=== PATIENT | male | born 1950 | race American Indian/Alaskan Native ===

== ENCOUNTER 2021-01-02 12:48 | Inpatient (IN) | payer MEDICARE, OTHER ==
[2021-01-02] MEDS ORDERED: SODIUM CHLORIDE 0.9% 500 ML 500 ML IV ONE (15:23)
--- NOTE | 2021-01-02 15:25 | Event Note ---
Date: 01/02/21 Medical screening examination note: 70-year-old gentleman with a history of hypertension, spinal stenosis (patient reports this is confirmed by CT scan, outpatient MRI and x-rays; scheduled to see an outpatient neurologist later on this month) referred to the emergency room today by his primary care doctor because of asymptomatic hypotension. Blood pressure was reportedly in the 70s. Patient given fluid in the field, now blood pressure 118 systolic. Patient is awake, alert, oriented, sober with a GCS of 15. He reports that he has no headache, cervical neck pain, chest pain, abdominal pain, shortness of breath, urinary symptoms, hematemesis of bright red blood per rectum. He is on a number of antihypertensive medications. He is not sure if he started any new or different medications. He denies bladder and bowel retention/incontinence as well as saddle anesthesia. He feels like he is at his baseline at this time, and he reports that he would not have presented to the emergency room today if he was not instructed to present by his primary care doctor. This is most likely hypotension secondary to medication. However, check CBC, comprehensive metabolic panel, EKG, urinalysis, give 500 cc of normal saline. Have discussed this plan of care with the patient. He is agreeable to the aforementioned. Vital Signs 01/02/21 13:45 Pulse Rate 96 H Respiratory 18 Rate Blood Pressure 132/76 [lef] O2 Sat by Pulse 98 Oximetry
[2021-01-02 16:10] LABS: Hematocrit 35.1 % (35.5-45.6); Hemoglobin 11.4 gm/dl (11.8-15.2); Mean Corpuscular HGB Conc 32 % (32-34); Mean Corpuscular Volume 86 fl (84-94); Platelet Count 503 K/mm3 (140-440); Red Cell Distribution Width 15.4 % (13.2-15.2)
[2021-01-02 16:30] LABS: Alanine Aminotransferase 12 units/L (7-56); Albumin 3.4 g/dL (3.9-5); Blood Urea Nitrogen 14 mg/dL (9-20); Calcium 10.2 mg/dL (8.4-10.2); Hemolysis Index 0
[2021-01-02 16:32] LABS: BUN/Creatinine Ratio 20
[2021-01-02 17:53] LABS: Basophils # (Auto) 0.1 K/mm3 (0.0-0.1); Basophils % (Auto) 0.4 % (0.0-1.8); Eosinophils # (Auto) 0.1 K/mm3 (0.0-0.4); Eosinophils % (Auto) 0.4 % (0.0-4.3); Hematocrit 34.3 % (35.5-45.6); Lymphocytes # (Auto) 0.9 K/mm3 (1.2-5.4); Mean Corpuscular HGB Conc 32 % (32-34); Mean Corpuscular Volume 85 fl (84-94); Monocytes # (Auto) 0.6 K/mm3 (0.0-0.8); Platelet Count 542 K/mm3 (140-440); Red Blood Count 4.04 M/mm3 (3.65-5.03); Red Cell Distribution Width 14.7 % (13.2-15.2)
--- NOTE | 2021-01-02 18:00 | XRay Report ---
CHEST 1 VIEW INDICATION: weakness. COMPARISON: None. FINDINGS: Support devices: None. Heart: Normal. Lungs/Pleura: No acute pulmonary or pleural findings. IMPRESSION: 1. No acute findings. Signer Name: Saulo Gaitan MD Signed: 01/02/2021 5:56 PM Workstation Name: [id number]
[2021-01-02] MEDS ORDERED: SODIUM CHLORIDE 0.9% 1000 ML 1,000 ML IV ONE (18:24)
--- NOTE | 2021-01-02 18:51 | Emergency Department Report ---
ED General Adult HPI - General Chief complaint: Weakness Stated complaint: LOW BLOOD PRESSURE Time Seen by Provider: 01/02/21 15:54 Source: EMS Mode of arrival: Stretcher Limitations: No Limitations - History of Present Illness Initial comments: The patient presents to the emergency department with a chief complaint of low blood pressure. The patient was at his physician's office was Dr. Morgan and had a blood pressure 88/59. Patient states besides being nauseous he had no other symptoms. Patient denies having chest pain, shortness breath, headache. Patient does complain of bilateral lower extremity weakness ever since receiving a COVID-19 vaccine and has been seen by orthopedic surgery and has an appointment with neurology for further evaluation of this weakness. This has been present for a couple of months at this time. -: Sudden Severity scale (0 -10): 2 Consistency: constant Improves with: none Worsens with: none Associated Symptoms: denies other symptoms Treatments Prior to Arrival: none - Related Data Home Medications Medication Instructions Recorded Confirmed Last Taken Aspirin EC [Halfprin EC] 81 mg PO QDAY 01/02/21 01/02/21 Unknown Butalb/Acetamin/Caff 50-325-40 50 01/02/21 Unknown [Fioricet 50-325-40] Colchicine [Colcrys] 0.6 mg PO DAILY 01/02/21 01/02/21 Unknown Finasteride 5 mg PO 01/02/21 Unknown Gabapentin 300 mg PO 01/02/21 Unknown Sitagliptin Phos/Metformin HCl 1 each PO 01/02/21 Unknown [Janumet 50-500 mg Tablet] Temazepam 30 mg PO 01/02/21 Unknown carvediloL [Coreg] 6.25 mg PO BID 01/02/21 01/02/21 Unknown traMADoL [Ultram] 50 mg PO Q6HR PRN 01/02/21 01/02/21 Unknown Allergies Allergy/AdvReac Type Severity Reaction Status Date / Time No Known Allergies Allergy Unverified 01/02/21 19:05 ED Review of Systems ROS: Stated complaint: LOW BLOOD PRESSURE Other details as noted in HPI Comment: All other systems reviewed and negative Constitutional: denies: chills, fever Eyes: denies: eye pain, eye discharge, vision change ENT: denies: ear pain, throat pain Respiratory: denies: cough, shortness of breath, wheezing Cardiovascular: denies: chest pain, palpitations Endocrine: no symptoms reported Gastrointestinal: nausea. denies: abdominal pain, diarrhea Genitourinary: denies: urgency, dysuria Musculoskeletal: denies: back pain, joint swelling, arthralgia Skin: denies: rash, lesions Neurological: denies: headache, weakness, paresthesias Psychiatric: denies: anxiety, depression Hematological/Lymphatic: denies: easy bleeding, easy bruising ED Past Medical Hx - Past Medical History Previous Medical History?: Yes Hx Hypertension: Yes Additional medical history: GOUT, MIGRAINES - Medications Home Medications: Home Medications Medication Instructions Recorded Confirmed Last Taken Type Aspirin EC [Halfprin EC] 81 mg PO QDAY 01/02/21 01/02/21 Unknown History Butalb/Acetamin/Caff 50-325-40 50 01/02/21 Unknown History [Fioricet 50-325-40] Colchicine [Colcrys] 0.6 mg PO DAILY 01/02/21 01/02/21 Unknown History Finasteride 5 mg PO 01/02/21 Unknown History Gabapentin 300 mg PO 01/02/21 Unknown History Sitagliptin Phos/Metformin HCl 1 each PO 01/02/21 Unknown History [Janumet 50-500 mg Tablet] Temazepam 30 mg PO 01/02/21 Unknown History carvediloL [Coreg] 6.25 mg PO BID 01/02/21 01/02/21 Unknown History traMADoL [Ultram] 50 mg PO Q6HR PRN 01/02/21 01/02/21 Unknown History ED Physical Exam - General Limitations: No Limitations General appearance: alert, in no apparent distress - Head Head exam: Present: atraumatic, normocephalic - Eye Eye exam: Present: normal appearance, PERRL, EOMI - ENT ENT exam: Present: mucous membranes dry - Neck Neck exam: Present: normal inspection - Respiratory Respiratory exam: Present: normal lung sounds bilaterally. Absent: respiratory distress - Cardiovascular Cardiovascular Exam: Present: normal rhythm, tachycardia. Absent: systolic murmur, diastolic murmur, rubs, gallop - GI/Abdominal GI/Abdominal exam: Present: soft, normal bowel sounds. Absent: distended, tenderness - Rectal Rectal exam: Present: deferred - Extremities Exam Extremities exam: Present: normal inspection - Back Exam Back exam: Present: normal inspection - Neurological Exam Neurological exam: Present: alert, oriented X3, CN II-XII intact. Absent: motor sensory deficit - Psychiatric Psychiatric exam: Present: normal affect, normal mood - Skin Skin exam: Present: warm, dry, intact, normal color. Absent: rash ED Course Vital Signs 01/02/21 13:45 Pulse Rate 96 H Respiratory 18 Rate Blood Pressure 132/76 [lef] O2 Sat by Pulse 98 Oximetry ED Medical Decision Making - Lab Data Result diagrams: 01/02/21 17:47 01/02/21 15:31 Lab Results 01/02/21 01/02/21 01/02/21 Range/Units 15:31 15:31 15:31 WBC 14.0 H (4.5-11.0) K/mm3 RBC 4.10 (3.65-5.03) M/mm3 Hgb 11.4 L (11.8-15.2) gm/dl Hct 35.1 L (35.5-45.6) % MCV 86 (84-94) fl MCH 28 (28-32) pg MCHC 32 (32-34) % RDW 15.4 H (13.2-15.2) % Plt Count 503 H (140-440) K/mm3 Lymph % (Auto) (13.4-35.0) % [place] % (Auto) (0.0-7.3) % Eos % (Auto) (0.0-4.3) % Baso % (Auto) (0.0-1.8) % Lymph # (Auto) (1.2-5.4) K/mm3 [place] # (Auto) (0.0-0.8) K/mm3 Eos # (Auto) (0.0-0.4) K/mm3 Baso # (Auto) (0.0-0.1) K/mm3 Seg Neutrophils % (40.0-70.0) % Seg Neutrophils # (1.8-7.7) K/mm3 Sodium 137 (137-145) mmol/L Potassium 4.5 (3.6-5.0) mmol/L Chloride 98.1 (98-107) mmol/L Carbon Dioxide 28 (22-30) mmol/L Anion Gap 15 mmol/L BUN 14 (9-20) mg/dL Creatinine 0.7 L (0.8-1.3) mg/dL Estimated GFR > 60 ml/min BUN/Creatinine Ratio 20 % Glucose 151 H (75-100) mg/dL Lactic Acid (0.7-2.0) mmol/L Calcium 10.2 (8.4-10.2) mg/dL Magnesium 1.50 L (1.7-2.3) mg/dL Total Bilirubin 0.60 (0.1-1.2) mg/dL AST 10 (5-40) units/L ALT 12 (7-56) units/L Alkaline Phosphatase 73 (35-129) units/L Total Creatine Kinase 30 L (55-170) units/L Total Protein 7.0 (6.3-8.2) g/dL Albumin 3.4 L (3.9-5) g/dL Albumin/Globulin Ratio 0.9 % TSH 2.780 (0.270-4.200) mlU/mL 01/02/21 01/02/21 Range/Units 17:47 18:20 WBC 15.6 H (4.5-11.0) K/mm3 RBC 4.04 (3.65-5.03) M/mm3 Hgb 11.0 L (11.8-15.2) gm/dl Hct 34.3 L (35.5-45.6) % MCV 85 (84-94) fl MCH 27 L (28-32) pg MCHC 32 (32-34) % RDW 14.7 (13.2-15.2) % Plt Count 542 H (140-440) K/mm3 Lymph % (Auto) 6.0 L (13.4-35.0) % [place] % (Auto) 4.0 (0.0-7.3) % Eos % (Auto) 0.4 (0.0-4.3) % Baso % (Auto) 0.4 (0.0-1.8) % Lymph # (Auto) 0.9 L (1.2-5.4) K/mm3 [place] # (Auto) 0.6 (0.0-0.8) K/mm3 Eos # (Auto) 0.1 (0.0-0.4) K/mm3 Baso # (Auto) 0.1 (0.0-0.1) K/mm3 Seg Neutrophils % 89.2 H (40.0-70.0) % Seg Neutrophils # 13.9 H (1.8-7.7) K/mm3 Sodium (137-145) mmol/L Potassium (3.6-5.0) mmol/L Chloride (98-107) mmol/L Carbon Dioxide (22-30) mmol/L Anion Gap mmol/L BUN (9-20) mg/dL Creatinine (0.8-1.3) mg/dL Estimated GFR ml/min BUN/Creatinine Ratio % Glucose (75-100) mg/dL Lactic Acid 2.80 H* (0.7-2.0) mmol/L Calcium (8.4-10.2) mg/dL Magnesium (1.7-2.3) mg/dL Total Bilirubin (0.1-1.2) mg/dL AST (5-40) units/L ALT (7-56) units/L Alkaline Phosphatase (35-129) units/L Total Creatine Kinase (55-170) units/L Total Protein (6.3-8.2) g/dL Albumin (3.9-5) g/dL Albumin/Globulin Ratio % TSH (0.270-4.200) mlU/mL - Medical Decision Making 2 L IV fluids initiated IV antibiotics given Discussed results with patient Critical care attestation.: If time is entered above; I have spent that time in minutes in the direct care of this critically ill patient, excluding procedure time. ED Disposition Clinical Impression: Lactic acidosis, Leukocytosis, Hypotension Disposition: OP ADMIT IP TO THIS HOSP Is pt being admited?: Yes Does the pt Need Aspirin: No Condition: Fair Referrals: JARAD MORGAN MD [Primary Care Provider] - 3-5 Days
--- NOTE | 2021-01-02 19:42 | History and Physical Report ---
History of Present Illness Chief complaint: My blood pressure was low History of present illness: 70 YO Male with DM, Gout, HTN, Migraine AUGUSTE presents to ED for evaluation. Pt reports " My blood pressure is low and my doctor sent me in". Pt states that he was seen by his PCP, Dr. Morgan and was found to have a blood pressure of 88/59. Pt transported to [facility] via private vehicle for further care and evaluation. Pt seen and evaluated in ED and found to have symptoms consistent with UTI, SIRS, as well as Acodosis. Pt placed in observation status and admitted to medical floor and initiated on IV antibiotic therapy. Past History Past Medical History: diabetes, hypertension, other (see HPI) Past Surgical History: No surgical history, Other (reviewed) Social history: . denies: smoking, alcohol abuse, prescription drug abuse Family history: diabetes, hypertension Medications and Allergies Allergies Allergy/AdvReac Type Severity Reaction Status Date / Time No Known Allergies Allergy Unverified 01/02/21 19:05 Home Medications Medication Instructions Recorded Confirmed Last Taken Type Aspirin EC [Halfprin EC] 81 mg PO QDAY 01/02/21 01/02/21 Unknown History Butalb/Acetamin/Caff 50-325-40 50 01/02/21 Unknown History [Fioricet 50-325-40] Colchicine [Colcrys] 0.6 mg PO DAILY 01/02/21 01/02/21 Unknown History Finasteride 5 mg PO 01/02/21 Unknown History Gabapentin 300 mg PO 01/02/21 Unknown History Sitagliptin Phos/Metformin HCl 1 each PO 01/02/21 Unknown History [Janumet 50-500 mg Tablet] Temazepam 30 mg PO 01/02/21 Unknown History carvediloL [Coreg] 6.25 mg PO BID 01/02/21 01/02/21 Unknown History traMADoL [Ultram] 50 mg PO Q6HR PRN 01/02/21 01/02/21 Unknown History Active Meds: Active Medications Sodium Chloride (Nacl 0.9% 500 Ml) 500 mls @ 999 mls/hr IV ONCE ONE Stop: 01/02/21 15:53 Last Admin: 01/02/21 19:03 Dose: 999 mls/hr Documented by: Sodium Chloride (Nacl 0.9% 1000 Ml) 1,000 mls @ 999 mls/hr IV BOLUS ONE Stop: 01/02/21 19:24 Last Admin: 01/02/21 19:04 Dose: 999 mls/hr Documented by: Cefepime HCl (Cefepime/Ns 2 Gm/100 Ml) 2 gm in 100 mls @ 200 mls/hr IV ONCE ONE; Protocol Stop: 01/02/21 19:26 Review of Systems Constitutional: no weight loss, no weight gain, no fever, no sweats Ears, nose, mouth and throat: no ear pain, no ear discharge Cardiovascular: no chest pain, no palpitations, no edema Respiratory: no cough, no cough with sputum, no excessive sputum Gastrointestinal: no abdominal pain, no diarrhea, no constipation, no change in bowel habits Genitourinary Male: dysuria, no hematuria, no flank pain Rectal: no pain, no incontinence, no bleeding Musculoskeletal: no neck stiffness, no neck pain, no arm numbness/tingling, no low back pain Integumentary: no rash, no pruritis, no redness, no sores, no wounds, no jaundice Neurological: no head injury, no paralysis, no parathesias, no numbness, no seizures, no tremors Psychiatric: no anxiety, no memory loss, no change in sleep habits, no sleep d isturbances, no insomnia, no change in appetite, no change in libido Endocrine: no cold intolerance, no heat intolerance, no polyphagia, no excessive thirst, no polyuria, no excessive sweating Hematologic/Lymphatic: no easy bruising, no easy bleeding, no lymphadenopathy, no lymphedema Allergic/Immunologic: no urticaria, no wheezing, no persistent infections, no anaphylaxis Exam - Constitutional Vitals: Temp Pulse Resp BP Pulse Ox 96 H 18 132/76 98 01/02/21 13:45 01/02/21 13:45 01/02/21 13:45 01/02/21 13:45 General appearance: Present: mild distress - EENT Eyes: Present: PERRL ENT: hearing intact, clear oral mucosa - Neck Neck: Present: supple, normal ROM - Respiratory Respiratory effort: normal Respiratory: bilateral: CTA - Cardiovascular Heart Sounds: Present: S1 & S2. Absent: rub, click - Extremities Extremities: pulses symmetrical, No edema Peripheral Pulses: within normal limits - Abdominal General gastrointestinal: Present: soft, non-tender, non-distended, normal bowel sounds Male genitourinary: Present: normal - Integumentary Integumentary: Present: clear, warm, dry - Musculoskeletal Musculoskeletal: gait normal, strength equal bilaterally - Psychiatric Psychiatric: appropriate mood/affect, intact judgment & insight - Neurologic Neurologic: CNII-XII intact, moves all extremities Results - Labs CBC & Chem 7: 01/02/21 17:47 01/02/21 15:31 Labs: Abnormal lab results 01/02/21 01/02/21 01/02/21 Range/Units 15:31 15:31 17:47 WBC 14.0 H 15.6 H (4.5-11.0) K/mm3 Hgb 11.4 L 11.0 L (11.8-15.2) gm/dl Hct 35.1 L 34.3 L (35.5-45.6) % MCH 27 L (28-32) pg RDW 15.4 H (13.2-15.2) % Plt Count 503 H 542 H (140-440) K/mm3 Lymph % (Auto) 6.0 L (13.4-35.0) % Lymph # (Auto) 0.9 L (1.2-5.4) K/mm3 Seg Neutrophils % 89.2 H (40.0-70.0) % Seg Neutrophils # 13.9 H (1.8-7.7) K/mm3 Creatinine 0.7 L (0.8-1.3) mg/dL Glucose 151 H (75-100) mg/dL Lactic Acid (0.7-2.0) mmol/L Magnesium 1.50 L (1.7-2.3) mg/dL Total Creatine Kinase 30 L (55-170) units/L Albumin 3.4 L (3.9-5) g/dL 01/02/21 01/02/21 Range/Units 18:20 19:07 WBC (4.5-11.0) K/mm3 Hgb (11.8-15.2) gm/dl Hct (35.5-45.6) % MCH (28-32) pg RDW (13.2-15.2) % Plt Count (140-440) K/mm3 Lymph % (Auto) (13.4-35.0) % Lymph # (Auto) (1.2-5.4) K/mm3 Seg Neutrophils % (40.0-70.0) % Seg Neutrophils # (1.8-7.7) K/mm3 Creatinine (0.8-1.3) mg/dL Glucose (75-100) mg/dL Lactic Acid 2.80 H* 2.30 H* (0.7-2.0) mmol/L Magnesium (1.7-2.3) mg/dL Total Creatine Kinase (55-170) units/L Albumin (3.9-5) g/dL Assessment and Plan - Patient Problems (1) UTI (urinary tract infection) Current Visit: Yes Status: Acute Qualifiers: Encounter type: initial encounter Plan to address problem: IV antibiotic therapy, urinalysis, supportive care. (2) Hypotension Current Visit: Yes Status: Acute Qualifiers: Hypotension type: idiopathic hypotension Qualified Code(s): I95.0 - Idiopathic hypotension Plan to address problem: Monitor BP q shift, hold antihypertensive therapy for now. (3) Diabetes Current Visit: Yes Status: Acute Plan to address problem: Consistent carbohydrate diet, accu check, hypoglycemia protocol (4) DVT prophylaxis Current Visit: Yes Status: Acute Plan to address problem: SCD to BLE while in bed.
[2021-01-02] MEDS ORDERED: ACETAMINOPHEN 325 MG TAB PO PRN (19:44)
[2021-01-02] MEDS ORDERED: ONDANSETRON 4 MG/2 ML INJ IV PRN (19:44)
[2021-01-02] MEDS ORDERED: ALBUTEROL 2.5 MG/3 ML NEBU IH PRN (19:44)
[2021-01-02] MEDS ORDERED: oxyCODONE /ACETAMINOPHEN 5-325MG TAB PO PRN (19:44)
[2021-01-02] MEDS ORDERED: SODIUM CHLORIDE 0.9% 1000 ML 1,000 ML IV SCH (19:45)
[2021-01-02] MEDS ORDERED: traMADol 50 MG TAB PO PRN (19:46)
[2021-01-02] MEDS ORDERED: TEMAZEPAM 30 MG PO SCH (21:00)
[2021-01-02] MEDS ORDERED: CEFEPIME/NS 2 GM/100 ML 2 GM/100 ML BAG IV ONE (21:00)
[2021-01-02 21:08] LABS: Bacteria,Urine 2+ /HPF (Negative); Bilirubin,Urine NEG (Negative); Blood,Urine NEG (Negative); Color,Urine Amber (Yellow); Hyaline Casts,Urine 2 /LPF; Mucus,Urine 3+ /HPF
[2021-01-02] MEDS ORDERED: MORPHINE 2 MG/1 ML INJ IV PRN (21:21)
[2021-01-03] MEDS: TEMAZEPAM 15 MG CAP PO SCH ×2 (01:21→22:04)
[2021-01-03] MEDS: carvediloL 6.25 MG TAB PO SCH ×3 (01:22→22:07)
[2021-01-03 06:18] LABS: BUN/Creatinine Ratio 20; Blood Urea Nitrogen 10 mg/dL (9-20); Hemolysis Index 6
[2021-01-03 06:24] LABS: Basophils % (Auto) 0.2 % (0.0-1.8); Eosinophils % (Auto) 0.2 % (0.0-4.3); Hematocrit 31.3 % (35.5-45.6); Hemoglobin 10.2 gm/dl (11.8-15.2); Lymphocytes # (Auto) 0.9 K/mm3 (1.2-5.4); Lymphocytes % (Auto) 7.7 % (13.4-35.0); Mean Corpuscular HGB Conc 33 % (32-34); Mean Corpuscular Volume 84 fl (84-94); Monocytes # (Auto) 0.7 K/mm3 (0.0-0.8); Monocytes % (Auto) 6.2 % (0.0-7.3); Platelet Count 452 K/mm3 (140-440); Red Blood Count 3.71 M/mm3 (3.65-5.03); Red Cell Distribution Width 15.4 % (13.2-15.2)
--- NOTE | 2021-01-03 08:28 | Progress Note ---
Assessment and Plan Assessment and plan: Sepsis. Present on admission. Patient meets criteria given the tachycardia, leukocytosis and diagnosis of UTI. UTI. Hypotension Diabetes mellitus type 2 01/03/2021. We will continue IV antibiotics and follow-up urine and blood cultures. Continue Accu-Cheks and sliding scale insulin. Anticipate discharge in a.m. if blood cultures are negative. History Interval history: No new issues overnight. Hospitalist Physical - Constitutional Vitals: Temp Pulse Resp BP Pulse Ox 98.5 F 101 H 18 107/64 96 01/03/21 06:11 01/03/21 06:11 01/03/21 06:11 01/03/21 06:11 01/03/21 06:11 General appearance: Present: mild distress - EENT Eyes: Present: PERRL, EOM intact ENT: hearing intact, clear oral mucosa, dentition normal - Neck Neck: Present: supple, normal ROM - Respiratory Respiratory effort: normal Respiratory: bilateral: CTA - Cardiovascular Rhythm: regular Heart Sounds: Present: S1 & S2. Absent: gallop, rub - Extremities Extremities: no ischemia, No edema, Full ROM - Abdominal General gastrointestinal: soft, non-tender, non-distended, normal bowel sounds - Integumentary Integumentary: Present: clear, warm, dry - Neurologic Neurologic: CNII-XII intact, moves all extremities Results - Labs CBC & Chem 7: 01/03/21 05:08 01/03/21 05:08 Labs: Laboratory Last Values WBC 12.0 K/mm3 (4.5-11.0) H 01/03/21 05:08 RBC 3.71 M/mm3 (3.65-5.03) 01/03/21 05:08 Hgb 10.2 gm/dl (11.8-15.2) L 01/03/21 05:08 Hct 31.3 % (35.5-45.6) L 01/03/21 05:08 MCV 84 fl (84-94) 01/03/21 05:08 MCH 28 pg (28-32) 01/03/21 05:08 MCHC 33 % (32-34) 01/03/21 05:08 RDW 15.4 % (13.2-15.2) H 01/03/21 05:08 Plt Count 452 K/mm3 (140-440) H 01/03/21 05:08 Lymph % (Auto) 7.7 % (13.4-35.0) L 01/03/21 05:08 [place] % (Auto) 6.2 % (0.0-7.3) 01/03/21 05:08 Eos % (Auto) 0.2 % (0.0-4.3) 01/03/21 05:08 Baso % (Auto) 0.2 % (0.0-1.8) 01/03/21 05:08 Lymph # (Auto) 0.9 K/mm3 (1.2-5.4) L 01/03/21 05:08 [place] # (Auto) 0.7 K/mm3 (0.0-0.8) 01/03/21 05:08 Eos # (Auto) 0.0 K/mm3 (0.0-0.4) 01/03/21 05:08 Baso # (Auto) 0.0 K/mm3 (0.0-0.1) 01/03/21 05:08 Seg Neutrophils % 85.7 % (40.0-70.0) H 01/03/21 05:08 Seg Neutrophils # 10.3 K/mm3 (1.8-7.7) H 01/03/21 05:08 Sodium 138 mmol/L (137-145) 01/03/21 05:08 Potassium 3.5 mmol/L (3.6-5.0) L D 01/03/21 05:08 Chloride 100.1 mmol/L (98-107) 01/03/21 05:08 Carbon Dioxide 23 mmol/L (22-30) 01/03/21 05:08 Anion Gap 18 mmol/L 01/03/21 05:08 BUN 10 mg/dL (9-20) 01/03/21 05:08 Creatinine 0.5 mg/dL (0.8-1.3) L 01/03/21 05:08 Estimated GFR > 60 ml/min 01/03/21 05:08 BUN/Creatinine Ratio 20 % 01/03/21 05:08 Glucose 155 mg/dL (75-100) H 01/03/21 05:08 POC Glucose 199 mg/dL (70-105) H 01/03/21 08:23 Lactic Acid 2.30 mmol/L (0.7-2.0) H* 01/02/21 19:07 Calcium 9.0 mg/dL (8.4-10.2) 01/03/21 05:08 Magnesium 1.50 mg/dL (1.7-2.3) L 01/02/21 15:31 Total Bilirubin 0.60 mg/dL (0.1-1.2) 01/02/21 15:31 AST 10 units/L (5-40) 01/02/21 15:31 ALT 12 units/L (7-56) 01/02/21 15:31 Alkaline Phosphatase 73 units/L (35-129) 01/02/21 15:31 Total Creatine Kinase 30 units/L (55-170) L 01/02/21 15:31 Total Protein 7.0 g/dL (6.3-8.2) 01/02/21 15:31 Albumin 3.4 g/dL (3.9-5) L 01/02/21 15:31 Albumin/Globulin Ratio 0.9 % 01/02/21 15:31 TSH 2.780 mlU/mL (0.270-4.200) 01/02/21 15:31 Urine Color Octavia (Yellow) 01/02/21 20:56 Urine Turbidity Cloudy (Clear) 01/02/21 20:56 Urine pH 5.0 (5.0-7.0) 01/02/21 20:56 Ur Specific [place] 1.023 (1.003-1.030) 01/02/21 20:56 Urine Protein 30 mg/dl mg/dL (Negative) 01/02/21 20:56 Urine Glucose (UA) Neg mg/dL (Negative) 01/02/21 20:56 Urine Ketones Neg mg/dL (Negative) 01/02/21 20:56 Urine Blood Neg (Negative) 01/02/21 20:56 Urine Nitrite Neg (Negative) 01/02/21 20:56 Urine Bilirubin Neg (Negative) 01/02/21 20:56 Urine Urobilinogen 4.0 mg/dL (<2.0) 01/02/21 20:56 Ur Leukocyte Esterase Sm (Negative) 01/02/21 20:56 Urine WBC (Auto) 20.0 /HPF (0.0-6.0) H 01/02/21 20:56 Urine RBC (Auto) 3.0 /HPF (0.0-6.0) 01/02/21 20:56 U Epithel Cells (Auto) 5.0 /HPF (0-13.0) 01/02/21 20:56 Urine Bacteria (Auto) 2+ /HPF (Negative) 01/02/21 20:56 Hyaline Casts 2 /LPF 01/02/21 20:56 Urine Mucus 3+ /HPF 01/02/21 20:56 Microbiology: Microbiology 01/02/21 18:31 Peripheral/Venous Blood Culture - Preliminary Culture in Progress 01/02/21 18:20 Peripheral/Venous Blood Culture - Preliminary Culture in Progress Trejo/IV: Voiding Method Urinal Active Medications - Current Medications Current Medications: Generic Name Dose Route Start Last Admin Trade Name Freq PRN Reason Stop Dose Admin Acetaminophen 650 mg 01/02/21 19:44 Acetaminophen 325 Mg Tab PO Q4H PRN Pain MILD(1-3)/Fever >100.5/AUGUSTE Albuterol 2.5 mg 01/02/21 19:44 Albuterol 2.5 Mg/3 Ml Nebu IH Q4HRT PRN Shortness Of Breath Aspirin 81 mg 01/03/21 08:00 Aspirin Ec 81 Mg Tab PO QDAY [facility] Carvedilol 6.25 mg 01/02/21 22:00 01/03/21 01:22 Carvedilol 6.25 Mg Tab PO Not Given BID [facility] Colchicine 0.6 mg 01/03/21 10:00 Colchicine 0.6 Mg Tab PO DAILY [facility] Sodium Chloride 1,000 mls @ 75 mls/hr 01/02/21 19:45 Nacl 0.9% 1000 Ml IV DIRECT [facility] Ceftriaxone Sodium 1 gm in 50 mls @ 100 mls/hr 01/03/21 10:00 Rocephin/Ns 1 Gm/50 Ml IV Q24HR [facility] Protocol Morphine Sulfate 2 mg 01/02/21 21:21 Morphine 2 Mg/1 Ml Inj IV Q8H PRN Pain , Severe (7-10) Ondansetron HCl 4 mg 01/02/21 19:44 Ondansetron 4 Mg/2 Ml Inj IV Q8H PRN Nausea And Vomiting Oxycodone/Acetaminophen 1 tab 01/02/21 19:44 Oxycodone /Acetaminophen 5-325mg Tab PO Q8H PRN Pain, Moderate (4-6) Sodium Chloride 10 ml 01/02/21 22:00 01/03/21 01:23 Sodium Chloride 0.9% 10 Ml Flush Syringe IV 10 ml BID ROHITH Administration Sodium Chloride 10 ml 01/02/21 19:44 Sodium Chloride 0.9% 10 Ml Flush Syringe IV PRN PRN LINE FLUSH Temazepam 30 mg 01/02/21 21:00 01/03/21 01:21 Temazepam 15 Mg Cap PO Not Given QHS ROHITH Tramadol HCl 50 mg 01/02/21 19:46 Tramadol 50 Mg Tab PO Q6HR PRN Pain, Moderate (4-6)
[2021-01-03] MEDS: ASPIRIN EC 81 MG TAB PO SCH (09:17)
[2021-01-03] MEDS: COLCHICINE 0.6 MG TAB PO SCH (09:19)
[2021-01-03] MEDS ORDERED: cefTRIAXone/NS 1 GM/50 ML 1 GM/50 ML BAG IV SCH (10:00)
--- NOTE | 2021-01-03 18:07 | Electrocardiograph Report ---
[facility] Test Date: 2021-01-03 Test Time: 08:07:38 Pat Name: ROGERS ZENG Department: Room: [facility] 1 Gender: M [employer]: ENRICO : 1950 Requested By: ENEDELIA LEVI Order Number: [id number] Reading MD: Jesse Perez Measurements Intervals [place] Rate: 95 P: 49 AR: 221 QRS: -59 QRSD: 98 T: 61 QT: 369 QTc: 466 Interpretive Statements Sinus rhythm Prolonged AR interval Left anterior fascicular block No previous ECG available for comparison Electronically Signed On 01-03-2021 18:06:40 EDT by Jesse Perez
[2021-01-03] MEDS: GABAPENTIN 300 MG CAP PO SCH (22:04)
[2021-01-04 01:43] LABS: Bilirubin,Urine NEG (Negative); Blood,Urine NEG (Negative); Color,Urine Yellow (Yellow); Mucus,Urine FEW /HPF; Protein,Urine <15 mg/dL mg/dL (Negative)
--- NOTE | 2021-01-04 08:01 | Discharge Summary ---
Providers - Providers Date of Admission: 01/03/21 16:18 Date of discharge: 01/04/21 Attending physician: LAURA ROSE Primary care physician: JARAD MORGAN Hospitalization Reason for admission: Sepsis, UTI Condition: Fair Hospital course: 70 YO Male with DM, Gout, HTN, Migraine AUGUSTE presents to ED for evaluation of hypotension. Pt stated that he was seen by his PCP, Dr. Morgan and was found to have a blood pressure of 88/59. Pt transported to [facility] via private vehicle for further care and evaluation. Pt seen and evaluated in ED and was admitted with diagnosis of UTI, sepsis, as well as Acodosis. The patient was treated with IV antibiotics and had significant improvement with stabilization of blood pressure. Blood cultures were found to be negative. Patient is felt to receive maximal hospital benefit and will be discharged home. Dedicated discharge time 35 minutes. Disposition: DC-01 TO HOME OR SELFCARE Final Discharge Diagnosis (Prints w/discharge instructions): Sepsis, UTI, metabolic acidosis, hypotension, diabetes mellitus type 2 Core Measure Documentation - Palliative Care Palliative Care/ Comfort Measures: Not Applicable - Core Measures Any of the following diagnoses?: none Exam - Constitutional Vitals: Temp Pulse Resp BP Pulse Ox 98.0 F 88 18 138/71 95 01/04/21 06:13 01/04/21 06:13 01/04/21 06:13 01/04/21 06:13 01/04/21 06:13 General appearance: Present: no acute distress, well-nourished - EENT Eyes: Present: PERRL ENT: hearing intact, clear oral mucosa - Neck Neck: Present: supple, normal ROM - Respiratory Respiratory effort: normal Respiratory: bilateral: CTA - Cardiovascular Heart Sounds: Present: S1 & S2. Absent: rub, click - Extremities Extremities: pulses symmetrical, No edema Peripheral Pulses: within normal limits - Abdominal General gastrointestinal: Present: soft, non-tender, non-distended, normal bowel sounds Male genitourinary: Present: normal - Integumentary Integumentary: Present: clear, warm, dry - Musculoskeletal Musculoskeletal: gait normal, strength equal bilaterally - Psychiatric Psychiatric: appropriate mood/affect, intact judgment & insight - Neurologic Neurologic: CNII-XII intact, moves all extremities Plan Activity: advance as tolerated Weight Bearing Status: Weight Bear as Tolerated Follow up with: JARAD MORGAN MD [Primary Care Provider] - 3-5 Days Prescriptions: levoFLOXacin [Levaquin TAB] 500 mg PO QDAY #7 tablet
[2021-01-04 08:09] VITALS: BP 126/77
[2021-01-04] MEDS: COLCHICINE 0.6 MG TAB PO SCH (08:15)
[2021-01-04] MEDS: carvediloL 6.25 MG TAB PO SCH (08:15)
[2021-01-04] MEDS: GABAPENTIN 300 MG CAP PO SCH (08:15)
[2021-01-04] MEDS: ASPIRIN EC 81 MG TAB PO SCH (08:15)
[2021-01-04] MEDS ORDERED: FINASTERIDE 5 MG TAB PO SCH (10:00)
== END 2021-01-04 10:53 | disposition home or self-care (01) | DRG 872 ==
LOC: ED 12:48 → 3B 19:44 → OBSVTOIN 01-03 16:18
PROVIDERS: ADMIT Internal Medicine; ATTEND Hospitalist
DX: A41.9 Sepsis, unspecified organism (principal); N39.0 Urinary tract infection, site not specified; E87.2 Acidosis; I95.0 Idiopathic hypotension; G43.909 Migraine, unspecified, not intractable, without status migrainosus; D72.829 Elevated white blood cell count, unspecified; E11.9 Type 2 diabetes mellitus without complications; Z79.899 Other long term (current) drug therapy; Z79.891 Long term (current) use of opiate analgesic; Z79.01 Long term (current) use of anticoagulants; Z79.82 Long term (current) use of aspirin; Z83.3 Family history of diabetes mellitus; Z82.49 Family history of ischemic heart disease and other diseases of the circulatory system
CPT/HCPCS: 36415; 71045; 80048; 80053; 81001; 82140; 82550; 82962; 83735; 84443; 85025; 85027; 87040; 87086; 93005; 96361; 96365; G0378; J0692; J0696; J7030; J7040